=== PATIENT | female | born 1940 | race Caucasian/White ===

== ENCOUNTER 2017-08-17 20:55 | Emergency (ER) | payer MEDICARE, BC ==
[~2017-08-17] VITALS: Ht 162.6 cm; Wt 59.2 kg
[~2017-08-17 20:55] MED LIST: ASPI-611 PO; CA C1TAB89 PO; CITA20TA11 PO; DIGO250T77 PO; ESTR0.3T3 PO; FLAX100025 PO; GABA-532 PO; GLUC-133 PO; MAGN400C PO; METO-395 PO; MULT-1141 PO; NITR0.4T51 SL; OMEP-50 PO; SIMV40TA4 PO; TRAM50TA2 PO; VALA500T37 PO
[2017-08-17 21:28] LABS: BASOPHILS % (AUTO) 0.5 % (0-1); EOSINOPHILS # (AUTO) 0.1 X10'3 (0-0.9); EOSINOPHILS % (AUTO) 1.2 % (0-6); HEMATOCRIT 38.2 % (35.0-45.0); HEMOGLOBIN 13.1 g/dl (12.0-16.0); LYMPHOCYTES # (AUTO) 1.8 X10'3 (1.1-4.8); MEAN CORPUSCULAR HEMOGLOBIN 34.7 PG (27.0-31.0); MEAN CORPUSCULAR HGB CONC 34.4 % (33.0-36.5); MEAN CORPUSCULAR VOLUME 100.7 FL (78-98); MEAN PLATELET VOLUME 7.5 FL (7.4-10.4); MONOCYTES # (AUTO) 0.6 X10'3 (0-0.9); MONOCYTES % (AUTO) 8.4 % (2-12); NEUTROPHILS # (AUTO) 4.9 X10'3 (1.8-7.7); NEUTROPHILS % (AUTO) 65.9 % (42-75); PLATELET COUNT 235 X10'3 (140-440); RED BLOOD COUNT 3.79 X10'6 (4.20-5.60); RED CELL DISTRIBUTION WIDTH 13.6 % (11.5-14.5); WHITE BLOOD COUNT 7.5 X10'3 (4.5-11.0)
[2017-08-17] MEDS ORDERED: DONEPEZIL HCL 5 MG TABLET (21:30)
[2017-08-17] MEDS ORDERED: OMEPRAZOLE DR 20 MG CAPSULE (21:30)
[2017-08-17] MEDS ORDERED: METOPROLOL SUCC ER 25 MG TAB (21:30)
[2017-08-17] MEDS ORDERED: NITROGLYCERIN 0.4 MG (21:30)
[2017-08-17] MEDS ORDERED: GABAPENTIN 300 MG CAPSULE (21:30)
[2017-08-17] MEDS ORDERED: SIMVASTATIN 40 MG TABLET (21:30)
[2017-08-17] MEDS ORDERED: VALACYCLOVIR HCL 500 MG TABLET (21:30)
[2017-08-17] MEDS ORDERED: PREMARIN 0.3 MG (21:30)
[2017-08-17] MEDS ORDERED: CITALOPRAM HBR 40 MG TABLET (21:30)
[2017-08-17] MEDS ORDERED: TRAMADOL HCL 50 MG TABLET (21:30)
[2017-08-17] MEDS ORDERED: [UNRECOGNIZED DRUG - CODE] (21:30)
[2017-08-17] MEDS ORDERED: DIGOXIN 250 MCG (21:30)
[2017-08-17 21:49] LABS: INR 0.9 INR; PARTIAL THROMBOPLASTIN TIME 26 SECONDS (22-32); PROTHROMBIN TIME 9.5 SECONDS (9.0-12.0)
[2017-08-17 22:05] LABS: ALANINE AMINOTRANSFERASE 19 U/L (12-78); ALBUMIN 3.5 G/DL (3.4-5.0); ALBUMIN/GLOBULIN RATIO 0.9 (1.1-1.5); ALKALINE PHOSPHATASE 66 IU/L (46-116); ASPARTATE AMINO TRANSFERASE 20 U/L (10-37); BILIRUBIN,TOTAL 0.3 MG/DL (0.1-1.0); BLOOD UREA NITROGEN 14 MG/DL (7-18); CALCIUM 8.4 MG/DL (8.5-10.1); GLUCOSE 116 MG/DL (70-104); MAGNESIUM 1.9 MG/DL (1.5-2.4); PHOSPHORUS 3.9 MG/DL (2.3-4.5); TOTAL PROTEIN 7.2 G/DL (6.4-8.2); eGFR 54 ML/MIN
[2017-08-17] MEDS ORDERED: CefTRIAXone/D5W-Rocephin 1gm 50 ML IV ONE (22:25)
[2017-08-17 22:30] LABS: CHLORIDE 98 MMOL/L (99-107); SODIUM 132 MMOL/L (135-145)
[2017-08-17 22:32] LABS: ANION GAP 4 (8-16); ETHANOL < 0.010 GM/DL (0.0-0.010); POTASSIUM 4.2 MMOL/L (3.5-5.1); TOTAL CARBON DIOXIDE 30.5 MMOL/L (24-32)
[2017-08-17 23:21] VITALS: BP 106/62
== END 2017-08-17 23:00 | disposition short-term general hospital (02) ==
LOC: ER 20:56
DX: I62.00 Nontraumatic subdural hemorrhage, unspecified (principal); J18.9 Pneumonia, unspecified organism; I10 Essential (primary) hypertension; I48.91 Unspecified atrial fibrillation; E78.00 Pure hypercholesterolemia, unspecified; I25.2 Old myocardial infarction; F17.200 Nicotine dependence, unspecified, uncomplicated; Z79.82 Long term (current) use of aspirin
CPT/HCPCS: 36415; 70450; 71045; 80053; 80320; 82948; 83605; 83735; 84100; 84443; 84484; 85025; 85610; 85730; 87040; 93005; 96365; 99291; J0696; J7030